=== PATIENT | female | born 1960 | race Caucasian/White ===

== ENCOUNTER 2025-01-19 23:38 | Emergency (ER) | payer MEDICARE, OTHER ==
[~2025-01-19] VITALS: Ht 160 cm; Wt 79.4 kg
[~2025-01-19 23:38] MED LIST: AMLO5TAB4 PO; CLON0.1T PO; LANS30CA54 PO; LORA0.5T PO; METO-356 PO; OLME1TAB34 PO; ROSU20TA2 PO
[2025-01-20 00:20] VITALS: TEMP 98
[2025-01-20] MEDS: ACETAMINOPHEN 500 MG TABLET PO ONE (00:20)
[2025-01-20] MEDS: METOCLOPRAMIDE HCL 10 MG/2 ML VIAL IV ONE (00:20)
[2025-01-20] MEDS: diphenhydrAMINE 50 MG/1 ML VIAL IV ONE (00:32)
[2025-01-20 00:33] LABS: CARBON DIOXIDE 31 mmol/L (21-32); CHLORIDE 102 mmol/L (98-107); CREATININE 0.9 mg/dL (0.6-1.3); GLUCOSE 137 mg/dL (74-106); POTASSIUM 3.4 mmol/L (3.5-5.1); SODIUM SERUM 142 mmol/L (136-145); UREA NITROGEN, BLOOD 15 mg/dL (7-18)
[2025-01-20 00:40] LABS: BASOPHILS % (AUTO) 0.5 % (0.0-2.0); EOSINOPHILS # (AUTO) 0.2 K/uL (0.0-0.7); EOSINOPHILS % (AUTO) 2.5 % (0.0-7.0); HEMOGLOBIN 13.7 g/dL (10.9-14.3); LYMPHOCYTES # (AUTO) 4.3 K/uL (0.8-4.8); LYMPHOCYTES % (AUTO) 45.7 % (20.5-51.5); MEAN CORPUSCULAR HEMOGLOBIN 30.1 uug (24.7-32.8); MEAN CORPUSCULAR HGB CONC 34 g/dL (32.3-35.6); MEAN CORPUSCULAR VOLUME 88.1 fL (75.5-95.3); MONOCYTES # (AUTO) 0.7 K/uL (0.1-1.30); MONOCYTES % (AUTO) 7.2 % (0.0-11.0); NEUTROPHILS # (AUTO) 4.1 K/uL (1.8-8.9); NEUTROPHILS % (AUTO) 44.1 % (38.5-71.5); PLATELET COUNT (AUTO) 303 K/uL (179-408); RED BLOOD CELL COUNT(AUTO) 4.54 MIL/uL (3.63-4.92); RED CELL DISTRIBUTION WIDTH 13.7 % (12.3-17.7); WHITE BLOOD COUNT (AUTO) 9.4 K/uL (3.8-11.8)
[2025-01-20 00:41] LABS: DIFFERENTIAL COMMENT 1
[2025-01-20 00:48] LABS: ALANINE AMINOTRANSFERASE 40 U/L (14-59); ALBUMIN 3.9 g/dL (3.4-5.0); ALKALINE PHOSPHATASE 63 U/L (50-136); ASPARTATE AMINOTRANSFERASE 16 U/L (15-37); BILIRUBIN,DIRECT 0.1 mg/dL (0.0-0.2); BILIRUBIN,TOTAL 0.3 mg/dL (0.2-1.0)
[2025-01-20 01:00] VITALS: BP 164/77
[2025-01-20] MEDS ORDERED: POTASSIUM CHLORIDE 20 MEQ TAB.PRT.SR ONE (01:59)
[2025-01-20] MEDS: POTASSIUM CHLORIDE 20 MEQ TAB.PRT.SR PO ONE (02:02)
[2025-01-20 03:28] VITALS: O2SAT 99
== END 2025-01-20 03:43 | disposition home or self-care (01) ==
LOC: ER 23:38
DX: R07.9 Chest pain, unspecified (principal); R51.9 Headache, unspecified; I10 Essential (primary) hypertension; R06.00 Dyspnea, unspecified; R11.0 Nausea; R42 Dizziness and giddiness; E66.9 Obesity, unspecified; F17.200 Nicotine dependence, unspecified, uncomplicated; Z79.899 Other long term (current) drug therapy; Z86.73 Personal history of transient ischemic attack (TIA), and cerebral infarction without residual deficits; Z60.2 Problems related to living alone; Z68.31 Body mass index [BMI] 31.0-31.9, adult
CPT/HCPCS: 99285; 70450; 71045; 36415; 93005; 96374; 80076; 80048; 85025; 85730; 84484 ×2; J1200; J2765; A4606; A4663; A9150